=== PATIENT | female | born 1990 | race Caucasian/White ===

== ENCOUNTER 2019-11-02 08:06 | Emergency (ER) | payer MEDICAID ==
[~2019-11-02] VITALS: Ht 165.1 cm; Wt 63.5 kg
--- NOTE | 2019-11-02 08:20 | Emergency Room Report ---
History of Present Illness General Chief Complaint: Medical Clearance Source: Patient Present Illness HPI Patient is a 28-year-old female denies any significant past medical history who presents to the ER requesting an EKG for her methadone clinic. She states that she needs 1 and that they do that frequently. She denies any chest pain or shortness of breath. She denies any palpitations. She states that she is been clear off of drugs for 1 year. She denies any fever or chills. Allergies: Coded Allergies: No Known Allergies (Unverified , 11/02/19) COVID-19 Screening Contact w/high risk pt: No Experienced COVID-19 symptoms?: No COVID-19 Testing performed PRACTICE PHYSICIAN: No Patient History Last Menstrual Period: last week Now: No Reviewed Nursing Documentation: PMH: Agreed; PSxH: Agreed Nursing Documentation-PMH Past Medical History: No History, Except For History Of Psychiatric Problem: Yes - PTSD, sub abuse Review of Systems All Other Systems: negative except mentioned in HPI Physical Exam Vital Signs Date Time Temp Pulse Resp B/P (MAP) Pulse Ox O2 Delivery O2 Flow Rate FiO2 11/02/19 08:10 98.4 93 20 122/79 (93) 96 Room Air Sp02 EP Interpretation: reviewed, normal General Appearance: no apparent distress, alert, GCS 15, non-toxic Head: normocephalic, atraumatic Eyes: bilateral eye normal inspection, bilateral eye PERRL ENT: hearing grossly normal, normal pharynx, no angioedema, normal voice Neck: full range of motion Respiratory: chest non-tender, lungs clear, normal breath sounds, speaking full sentences Cardiovascular #1: regular rate, rhythm Gastrointestinal: non tender, soft Rectal: deferred Musculoskeletal: normal range of motion 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 I informed the patient of this. I also told her that it could cause a deadly arrhythmia. I told her to please discuss with her clinic doctor prior to receiving additional doses of methadone as this could put her life at risk. I also wrote this on her discharge paperwork. She demonstrated understanding. After discussing risks and benefits of further diagnostics, treatment plans, as well as indications for and risks of admission, the patient is agreeable to being discharged home. I have explained that their evaluation and treatment in the emergency department today is an important step towards them achieving better health but that their evaluation today is not intended to replace further evaluation and treatment by a physician in their local clinic. I have explained that while the current findings suggest no immediate life threatening emergency they will require further evaluation and treatment by a physician of their choice in their area. They understand that it will be necessary for them to review the final reports of their ED visit with their clinic physician. We have reviewed indications for return to the Emergency Department. I have explained that additional time may need to pass and/or additional testing as an outpatient may be necessary before a definitive diagnosis can be made. They tell me they are willing to follow up as instructed within the timeframe I recommend. They appear to understand what we discussed. Additionally they understand that if they are unable to be seen by an outpatient physician they are welcome, and in fact should, return to the Emergency Department for a repeat evaluation. The patient is stable at time of discharge. EKG Diagnostic Results EKG Time: 08:19 EP Interpretation: Tiki Pacheco MD Rate: normal - 87 bpm Rhythm: NSR ST Segments: no acute changes ASA given to the pt in ED: No Last Vital Signs Date Time Temp Pulse Resp B/P (MAP) Pulse Ox O2 Delivery O2 Flow Rate FiO2 11/02/19 08:10 98.4 93 20 122/79 (93) 96 Room Air Disposition: HOME, SELF-CARE Condition: Stable Additional Instructions: The patient was provided with discharge instructions, notified to follow-up with a primary care doctor and or specialist in the next 24-48 hours, and to return to the ED if they have worsening of their symptoms. Please note that this report is being documented using Flud technology. This can lead to erroneous entry secondary to incorrect interpretation by the dictating instrument. Tiki Pacheco M.D. Nov 02, 2019 08:20
[2019-11-02 08:26] VITALS: BP 126/84
[2019-11-02 08:32] VITALS: BP 131/87
== END 2019-11-02 08:32 | disposition home or self-care (01) ==
LOC: EMR 08:24
DX: R94.31 Abnormal electrocardiogram [ECG] [EKG] (principal)
CPT/HCPCS: 93005; Z7502; 99283